=== PATIENT | male | born 1940 | race Caucasian/White ===

== ENCOUNTER 2018-10-02 17:45 | Emergency (ER) | payer OTHER | END 2018-10-02 22:29 | disposition home or self-care (01) | LOC: FTE 17:45 | DX: M25.532 Pain in left wrist (principal); I10 Essential (primary) hypertension; E11.9 Type 2 diabetes mellitus without complications; R93.0 Abnormal findings on diagnostic imaging of skull and head, not elsewhere classified | CPT/HCPCS: 70450; 72050; 73030; 73110-LT; 99284-25 ==